=== PATIENT | female | born 1975 | race Caucasian/White ===

== ENCOUNTER 2022-04-14 08:25 | Outpatient (CLI) | payer MEDICAID | END 2022-04-14 08:26 | disposition critical access hospital (66) | LOC: EMS 08:25 | DX: R53.83 Other fatigue (principal); Z72.820 Sleep deprivation; M54.9 Dorsalgia, unspecified; R44.3 Hallucinations, unspecified; R19.7 Diarrhea, unspecified; F41.9 Anxiety disorder, unspecified; U07.1 COVID-19; Z59.00 Homelessness unspecified | CPT/HCPCS: A0425; A0429; A0999 ==

== ENCOUNTER 2022-04-22 22:40 | Outpatient (CLI) | payer MEDICAID | END 2022-04-22 22:41 | disposition critical access hospital (66) | LOC: EMS 22:40 | DX: R06.02 Shortness of breath (principal); R00.0 Tachycardia, unspecified; F41.9 Anxiety disorder, unspecified; Z63.4 Disappearance and death of family member; Z59.89 Other problems related to housing and economic circumstances | CPT/HCPCS: A0425; A0429; A0999 ==

== ENCOUNTER 2022-04-22 22:59 | Emergency (ER) | payer MEDICAID ==
[2022-04-22 23:12] VITALS: BP 177/125
[2022-04-22] MEDS ORDERED: ALPRAZolam 0.25 MG TABLET PO STA (23:14)
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
== END 2022-04-23 01:00 | disposition home or self-care (01) ==
LOC: EDUNIT# → ED 22:59
DX: F41.9 Anxiety disorder, unspecified (principal); F43.10 Post-traumatic stress disorder, unspecified; F32.A Depression, unspecified
CPT/HCPCS: 36415; 93005; 99283; A9270